=== PATIENT | female | born 1980 | race Caucasian/White ===

== ENCOUNTER 2018-10-19 19:38 | Emergency (ER) | payer OTHER ==
[2018-10-19 20:08] VITALS: BP 123/82; PULSE 98; TEMP 98.8; BMI 21.4
[2018-10-19 20:37] LABS: PH,URINE 6.5 (4.5-8); URINE APPEARANCE Clear; URINE BILIRUBIN Negative (NEGATIVE); URINE COLOR Yellow; URINE GLUCOSE (UA) Negative (NEGATIVE); URINE KETONE Negative (NEGATIVE); URINE LEUK ESTERASE Negative (NEGATIVE); URINE NITRITE Negative (NEGATIVE); URINE PROTEIN Negative (NEGATIVE); URINE UROBILINOGEN 0.2 (0.2-1.0)
--- NOTE | 2018-10-19 20:43 | PDOC ---
History of Present Illness - General History Source: Patient Exam Limitations: No Limitations - History of Present Illness Initial Comments: 10/19/18 20:59 The patient is a 38 year old female, with a significant PMH of migraines who presents to the emergency department with generalized body aches, headache, nausea, yellow-greenish nasal discharge, and lack of appetite for the past week and a half and a fever today. Patient states that 6 days ago she went to her PCP , for these same symptoms in addition to an sore throat at the time and was told she had bronchitis. Patient was prescribed a z-gertrduis and an inhaler but noticed her symptoms worsened today. Patient reports a fever TMax 102.3 today for which she took a Tylenol at 5PM. Patient describes her headache as throbbing and localized on her the right side of her forehead radiating to the back of her head. Patient notes the headache feels worse than her normal migraines for which she takes propranolol. The patient denies chest pain, shortness of breath, and dizziness. Denies chills, vomit, diarrhea and constipation. Denies dysuria, frequency, urgency and hematuria. Allergies: NKA Past surgical history: None reported. Social history: No reported alcohol, drug or cigarette use. <Diane Vaughn - Last Filed: 10/19/18 23:25> <Briseyda Frias - Last Filed: 10/20/18 05:19> - General Chief Complaint: Pain Stated Complaint: GEN DISCOMFORT/FEVER Time Seen by Provider: 10/19/18 19:45 Past History <Diane Vaughn - Last Filed: 10/19/18 23:25> - Past Medical History COPD: No Other medical history: MIGRAINES, RECENT BRONCHITIS - Suicide/Smoking/Psychosocial Hx Smoking History: Never smoked <Briseyda Frias - Last Filed: 10/20/18 05:19> - Past Medical History Allergies/Adverse Reactions: Allergies Allergy/AdvReac Type Severity Reaction Status Date / Time amoxicillin Allergy Verified 10/19/18 19:39 latex Allergy Verified 10/19/18 19:40 Home Medications: Ambulatory Orders Ciprofloxacin 0.3% Eye Drops [Ciloxan 0.3% Eye Drops --] 1 drop OS Q4HWA #1 bottle 10/19/18 Ketorolac Tromethamine [Toradol] 10 mg PO TID PRN #15 tablet 10/19/18 levoFLOXacin [Levaquin -] 500 mg PO DAILY #7 tablet 10/19/18 Review of Systems - Review of Systems Comments:: 10/19/18 20:59 ADULT ROS GENERAL/CONSTITUTIONAL: (+) Fever. No chills. HEAD, EYES, EARS, NOSE AND THROAT: No change in vision. No ear pain or discharge. No sore throat. CARDIOVASCULAR: No chest pain or shortness of breath. RESPIRATORY: No cough, wheezing, or hemoptysis. GASTROINTESTINAL: No vomiting, diarrhea or constipation. (+) Nausea, lack of appetite. GENITOURINARY: No dysuria, frequency, or change in urination. MUSCULOSKELETAL: No joint or muscle swelling or pain. No neck pain. (+) Generalized body aches. SKIN: No rash NEUROLOGIC: (+) Headache. No vertigo, loss of consciousness, or change in strength/sensation. ENDOCRINE: No increased thirst. No abnormal weight change. HEMATOLOGIC/LYMPHATIC: No anemia, easy bleeding, or history of blood clots. ALLERGIC/IMMUNOLOGIC: No hives or skin allergy. <Diane aVughn - Last Filed: 10/19/18 23:25> *Physical Exam - Vital Signs Last Vital Signs Temp Pulse Resp BP Pulse Ox 98.8 F 98 H 16 123/82 98 10/19/18 19:42 10/19/18 19:42 10/19/18 19:42 10/19/18 19:42 10/19/18 19:42 - Physical Exam Comments: 10/19/18 20:59 ADULT EXAM GENERAL: Awake, alert, and fully oriented, in no acute distress HEAD: No signs of trauma EYES: PERRLA, EOMI, sclera anicteric, conjunctiva clear ENT: Auricles normal inspection, hearing grossly normal, nares patent, oropharynx clear without exudates. (+) Dry mucous membranes. (+) Tenderness to the right maxillary sinus. NECK: Normal ROM, supple, no lymphadenopathy, JVD, or masses LUNGS: Breath sounds equal, clear to auscultation bilaterally. No wheezes, and no crackles HEART: Regular rate and rhythm, normal S1 and S2, no murmurs, rubs or gallops ABDOMEN: Soft, nontender, normoactive bowel sounds. No guarding, no rebound. No masses EXTREMITIES: Normal range of motion, no edema. No clubbing or cyanosis. No cords, erythema, or tenderness NEUROLOGICAL: Cranial nerves II through XII grossly intact. Normal speech, normal gait SKIN: Warm, Dry, normal turgor, no rashes or lesions noted. <Diane Vaughn - Last Filed: 10/19/18 23:25> - Vital Signs Last Vital Signs Temp Pulse Resp BP Pulse Ox 98.8 F 98 H 16 123/82 98 10/19/18 19:42 10/19/18 19:42 10/19/18 19:42 10/19/18 19:42 10/19/18 19:42 <Briseyda Frias - Last Filed: 10/20/18 05:19> ED Treatment Course - LABORATORY CBC & Chemistry Diagram: 10/19/18 21:05 10/19/18 21:05 - ADDITIONAL ORDERS Additional order review: Laboratory Results 10/19/18 20:26 Urine Color Yellow Urine Appearance Clear Urine pH 6.5 Ur Specific [place] <= 1.005 L Urine Protein Negative Urine Glucose (UA) Negative Urine Ketones Negative Urine Blood Trace-intact H Urine Nitrite Negative Urine Bilirubin Negative Urine Urobilinogen 0.2 Ur Leukocyte Esterase Negative Urine RBC 2-5 Urine WBC 0-2 Ur Epithelial Cells Few Amorphous Urates None seen Urine Bacteria None seen Urine HCG, Qual Negative <Diane aVughn - Last Filed: 10/19/18 23:25> - LABORATORY CBC & Chemistry Diagram: 10/19/18 21:05 10/19/18 21:05 <Briseyda Frias - Last Filed: 10/20/18 05:19> Medical Decision Making - Medical Decision Making Documentation has been prepared under my direction and personally reviewed by me in its entirety. I attest that this documented accurately reflects all work, treatment, procedures and medical decision making performed by me. As noted above, this 38-year-old woman presents with a few day history of body aches/right sided migraine headache(patient usually has her migraine headaches on the right side of her head)/facial tenderness/purulent nasal discharge. She also noted fever to greater than 102 earlier today. Patient has just been recovering from a respiratory illness that appeared to be of viral origin. No significant past medical history. Exam as noted. Patient appeared clinically dehydrated. Exam noted for tenderness over the right maxillary sinus and mild left-sided acute conjunctivitis. CBC/chemistry profile/influenza nasopharyngeal swab taken. The patient also received a liter normal saline IV and 30 mg Toradol IV for her headache/bodyaches. Laboratory evaluation including influenza rapid test showed no evidence of acute disease. Because of patient's evidence of sinusitis, patient will be started on Levaquin 500 mg daily. Ciprofloxacin eyedrops will also be used for her mild conjunctivitis. She asked for oral Toradol prescription because it was helpful for her migraine headache. <Briseyda Frias - Last Filed: 10/20/18 05:19> *DC/Admit/Observation/Transfer - Attestations Scribe Attestion: 10/19/18 20:59 Documentation prepared by Diane Vaughn, acting as medical detailist for Briseyda Frias MD. <Diane Vaughn - Last Filed: 10/19/18 23:25> <Briseyda Frias - Last Filed: 10/20/18 05:19> Diagnosis at time of Disposition: Viral illness Sinusitis Qualifiers: Sinusitis location: maxillary Chronicity: acute Recurrence: non-recurrent Qualified Code(s): J01.00 - Acute maxillary sinusitis, unspecified - Discharge Dispostion Disposition: HOME Condition at time of disposition: Stable - Prescriptions Prescriptions: Ciprofloxacin 0.3% Eye Drops [Ciloxan 0.3% Eye Drops --] 1 drop OS Q4HWA #1 bottle Ketorolac Tromethamine [Toradol] 10 mg PO TID PRN #15 tablet PRN Reason: Headache levoFLOXacin [Levaquin -] 500 mg PO DAILY #7 tablet - Patient Instructions Printed Discharge Instructions: DI for Sinusitis Additional Instructions: Rest; drink plenty fluids Toradol 10 mg up to 3 times a day as needed for body aches/headache; take with food Levaquin 500 mg once a daily for sinusitis Cipro eyedrops 2 drops in left eye every 4 hours while awake for the next week Return to ER if you have high fever/shortness of breath/vomiting Follow-up with your doctor within the next 2-3 days - Post Discharge Activity Forms/Work/School Notes: Back to Work
[2018-10-19 20:44] LABS: HCG,QUALITATIVE URINE Negative
[2018-10-19 20:49] LABS: AMORP URATES NONE SEEN /hpf (NONE SEEN); EPI CELLS FEW /HPF; URINE BACTERIA NONE SEEN /hpf (NEGATIVE); URINE WBC 0-2 (0-5)
[2018-10-19] MEDS ORDERED: KETOROLAC TROMETHAMINE 30 MG/1 ML VIAL IVPUSH ONE (20:58)
[2018-10-19] MEDS ORDERED: SODIUM CHLORIDE 1,000 ML IV STA (20:58)
[2018-10-19] MEDS ORDERED: KETOROLAC TROMETHAMINE 30 MG/1 ML VIAL ONE (20:59)
[2018-10-19 21:56] LABS: ALBUMIN 3.6 g/dl (3.5-5.0); ALK PHOS 66 U/L (32-92); ANION GAP 7 MMOL/L (8-16); BILIRUBIN,TOTAL 0.8 mg/dl (0.2-1.0); BLOOD UREA NITROGEN 10 mg/dl (7-18); CHLORIDE 102 mmol/L (98-107); CO2 26 mmol/L (22-28); CREATININE 0.6 mg/dl (0.6-1.3); GLUCOSE,RANDOM 103 mg/dl (74-106); POTASSIUM 3.7 mmol/L (3.5-5.1); SGOT/AST 16 U/L (10-42); SGPT/ALT 12 U/L (10-40); SODIUM 135 mmol/L (136-145); TOT PROT 6.9 g/dl (6.4-8.3)
[2018-10-19 22:06] LABS: BASO % 0.1 % (0-2.0); EOS % 0.2 % (0-4.5); HEMATOCRIT 37.8 % (32.4-45.2); HEMOGLOBIN 12.6 GM/dl (10.7-15.3); LYMPH % 10.2 % (8-40); MCH 28.5 pg (25.7-33.7); MCHC 33.3 g/dl (32.0-36.0); MEAN CELL VOLUME 85.6 fl (80-96); MEAN PLT VOLUME 7.9 fl (7.5-11.1); NEUT % 81.5 % (42.8-82.8); PLATELET COUNT 330 K/MM3 (134-434); RBC 4.42 M/mm3 (3.60-5.2); RDW 13.5 % (11.6-15.6); WHITE BLOOD COUNT 9.6 K/mm3 (4.0-10.8)
== END 2018-10-19 22:50 | disposition home or self-care (01) ==
LOC: FER 19:38
PROC: 3E0333Z Introduction of Anti-inflammatory into Peripheral Vein, Percutaneous Approach (ICD-10-PCS; principal; 2018-10-19)
PROC: 3E0337Z Introduction of Electrolytic and Water Balance Substance into Peripheral Vein, Percutaneous Approach (ICD-10-PCS; 2018-10-19)
DX: J01.00 Acute maxillary sinusitis, unspecified (principal); B34.9 Viral infection, unspecified
CPT/HCPCS: 36415; 80053; 81003; 81015; 84703; 85025; 87804; 99282-25; J7030